=== PATIENT | female | born 1980 | race Caucasian/White ===

== ENCOUNTER 2020-02-27 14:08 | Emergency (ER) | payer SELFPAY ==
[~2020-02-27] VITALS: Ht 162.6 cm; Wt 63.0 kg
[2020-02-27 14:31] VITALS: BP 117/80
[2020-02-27] MEDS ORDERED: TETANUS, DIPHTHERIA, PERTUSSIS VAC/PF 0.5ML (>7YR OLD) IM ONE (14:45)
[2020-02-27] MEDS ORDERED: AMOXICILLIN/POTASSIUM CLAVULANATE 875/125MG TAB PO ONE (14:45)
== END 2020-02-27 15:07 | disposition home or self-care (01) ==
LOC: ER 14:08
DX: S00.512A Abrasion of oral cavity, initial encounter (principal); S00.83XA Contusion of other part of head, initial encounter; Z98.890 Other specified postprocedural states; Y04.0XXA Assault by unarmed brawl or fight, initial encounter; Y93.89 Activity, other specified; Y92.018 Other place in single-family (private) house as the place of occurrence of the external cause
CPT/HCPCS: 90471; 90715; 99283